=== PATIENT | female | born 1995 | race Caucasian/White ===

== ENCOUNTER 2018-11-05 10:43 | Outpatient (CLI) | payer BC, SELFPAY ==
[2018-11-05 11:08] LABS: HCT 43.7 % (36.0-46.0); HGB 14.9 g/dL (12.0-15.5); Mean Corp. HGB Concentration 34.1 g/dL (32.0-36.0); Mean Corpuscular Hemoglobin 29.1 pg (27.0-33.0); Mean Corpuscular Volume 85.4 fL (80-95); Mean Platelet Volume 11.4 fL (8.0-11.0); Platelet Count 250 x1000/uL (130-400); RBC 5.12 m/cumm (4.00-5.20); RBC Distribution Width 11.6 % (11.7-14.6); White Blood Cell Count 5.47 k/cumm (4.4-10.8)
[2018-11-05 13:11] LABS: ALT 28 U/L (12-78); AST 20 U/L (15-37); Alkaline Phosphatase 65 U/L (46-116); Amylase 60 U/L (25-115); Anion Gap 9.3 mmol/L (3-11); BUN 7 mg/dL (7-18); Bilirubin, Total 0.5 mg/dL (0.2-1.0); CO2 29.7 mmol/L (21.0-32.0); CREATININE 1.03 mg/dL (0.55-1.02); Calcium 9.4 mg/dL (8.5-10.1); Chloride 103 mmol/L (98-107); Glucose 104 mg/dL (70-100); Lipase 99 U/L (73-393); Potassium 4.3 mmol/L (3.5-5.1); Sodium 142 mmol/L (136-145); Total Protein 7.4 g/dL (6.4-8.2)
[2018-11-07 13:14] LABS: IgA 312 mg/dL (85-499); Interpretation SEE COMMENTS; Tissue Transglutaminase IgA <1.2 U/mL (<4.0)
== END 2018-11-05 11:03 ==
PROVIDERS: PCP Pediatrics; Visit Provider Registered Nurse
DX: R11.0 Nausea (principal)
CPT/HCPCS: 36415; 80053; 82784; 83516; 83690; 85027; 82150

== ENCOUNTER 2018-11-26 00:53 | Outpatient (CLI) | payer BC, SELFPAY ==
--- NOTE | 2018-11-26 06:54 | DI.US_ITS ---
SYMPTOM/DIAGNOSIS: CHRONIC ABD PAIN, NAUSEA, R11.0 ABDOMEN ULTRASOUND: Routine examination was performed. The visualized liver parenchyma is normal in appearance. There is no evidence of cholelithiasis. The common bile duct is of normal diameter. The pancreas and spleen appear intact. No renal abnormality is seen. The abdominal aorta is of normal diameter. Normal appearance of IVC. CONCLUSION: Normal abdominal ultrasound.
== END 2018-11-26 01:13 ==
PROVIDERS: PCP Pediatrics; Visit Provider Registered Nurse
DX: R10.84 Generalized abdominal pain (principal); R11.0 Nausea
CPT/HCPCS: 76700

== ENCOUNTER 2019-07-09 11:40 | Outpatient (REF) | payer BC, SELFPAY ==
--- NOTE | 2019-07-09 11:00 | PAPFT_PTH ---
PATIENT: Evette Feng LOC: [facility] U#:[id number] AGE/SX: 24/F ROOM: RE07/09/[address]: KRISTIN Coto : 1995 BED: DIS: 07/09/2019 SPEC #: [id number] RECD: 07/09/19 12:46 STATUS: GETACHEW REQ #: [id number] TOMMY: 07/09/19 11:[address]: Nohemy Copeland DEPT: [facility] Cytology RECD BY: Sabrina Hernandez ENTERED: 07/09/19 12:46 SP TYPE: PAPFT OTHR DR: Miri Jones MD Tissues: 1 - CX/ENDOCX FOR PAP SMEARS Procedures: PAP THIN PREP/[facility] Screening Comments: [id number]
[2019-07-10 15:41] LABS: Chlamydia Result Negative (Negative); GC Result Negative (Negative); Specimen Description CERVIX
== END 2019-07-09 12:00 ==
LOC: LBN 11:40
PROVIDERS: PCP Pediatrics; Visit Provider Nurse Practitioner Family
DX: Z11.3 Encounter for screening for infections with a predominantly sexual mode of transmission (principal); Z12.4 Encounter for screening for malignant neoplasm of cervix; Z11.51 Encounter for screening for human papillomavirus (HPV)
CPT/HCPCS: 87491; 87591; 88142

== ENCOUNTER 2021-01-23 16:06 | Outpatient (REF) | payer BC, SELFPAY ==
--- NOTE | 2021-01-23 14:00 | PAPFT_PTH ---
PATIENT: Evette Feng LOC: [facility] U#:[id number] AGE/SX: 25/F ROOM: RE01/23/[address]: KRISTIN Coto : 1995 BED: DIS: 01/23/2021 SPEC #: [id number] RECD: 01/23/21 18:39 STATUS: GETACHEW REQ #: [id number] TOMMY: 01/23/21 14:[address]: Nohemy Copeland DEPT: [facility] Cytology RECD BY: Sabrina Hernandez ENTERED: 01/23/21 18:39 SP TYPE: PAPFT OT DR: Rosita Alvarado APRN Tissues: 1 - CX/ENDOCX FOR PAP SMEARS Procedures: PAP THIN PREP/[facility] Screening Comments: [id number]
== END 2021-01-23 16:07 | disposition home or self-care (01) ==
LOC: LBN 16:06
PROVIDERS: PCP Nurse Practitioner Adult Health; Visit Provider Nurse Practitioner Family
DX: Z12.4 Encounter for screening for malignant neoplasm of cervix (principal)
CPT/HCPCS: 88142

== ENCOUNTER 2022-02-13 12:14 | Outpatient (REF) | payer BC, SELFPAY ==
--- NOTE | 2022-02-13 11:30 | PAPFT_PTH ---
PATIENT: Evette Feng LOC: [facility] U#:[id number] AGE/SX: 27/F ROOM: RE02/13/[address]: KRISTIN Coto : 1995 BED: DIS: 02/13/2022 SPEC #: [id number] RECD: 02/13/22 12:59 STATUS: GETACHEW REQ #: [id number] TOMMY: 02/13/22 11:[address]: Nohemy Copeland DEPT: [facility] Cytology RECD BY: Sabrina Hernandez ENTERED: 02/13/22 12:59 SP TYPE: PAPFT OTHR DR: Rosita Alvarado APRN Tissues: 1 - CX/ENDOCX FOR PAP SMEARS Procedures: PAP THIN PREP/[facility] Screening Comments: [id number]
== END 2022-02-13 12:15 | disposition home or self-care (01) ==
LOC: LBN 12:14
PROVIDERS: PCP Nurse Practitioner Adult Health; Visit Provider Nurse Practitioner Family
DX: Z12.4 Encounter for screening for malignant neoplasm of cervix (principal)
CPT/HCPCS: 88142

== ENCOUNTER 2022-02-27 01:23 | Outpatient (CLI) | payer BC, SELFPAY ==
[2022-02-27 11:16] LABS: FREE T4 0.83 ng/dL (0.76-1.46); TSH 2.55 uIU/mL (0.36-3.74)
== END 2022-02-27 01:24 | disposition home or self-care (01) ==
LOC: LBO 01:23
PROVIDERS: PCP Nurse Practitioner Adult Health; Visit Provider Nurse Practitioner Family
DX: E03.9 Hypothyroidism, unspecified (principal)
CPT/HCPCS: 36415; 84439; 84443

== ENCOUNTER 2022-03-08 03:57 | Outpatient (CLI) | payer BC, SELFPAY ==
[2022-03-12 09:34] LABS: Testosterone, Free 1.34 ng/dL (0.06-1.06); Testosterone, Total 56 ng/dL (8-60)
== END 2022-03-08 03:58 | disposition home or self-care (01) ==
LOC: LBO 03:57
PROVIDERS: PCP Nurse Practitioner Adult Health; Visit Provider Obstetrics & Gynecology
DX: N91.3 Primary oligomenorrhea (principal)
CPT/HCPCS: 36415; 84402; 84403

== ENCOUNTER 2022-08-20 03:12 | Outpatient (CLI) | payer BC, SELFPAY ==
[2022-08-20 14:56] LABS: Panorama Kit Sent via Fed Ex
[2022-08-20 15:00] LABS: Abs Immature Grans 0.03 10^3/uL (0.0-0.06); Absolute Basophil Count 0.04 10^3/uL (0.0-0.2); Absolute Eosinophil Count 0.08 10^3/uL (0.0-0.7); Absolute Lymphocyte Count 2.62 10^3/uL (1.2-3.4); Absolute Monocyte Count 0.65 10^3/uL (0.1-0.8); Absolute Neutrophil Count 8.37 10^3/uL (1.2-6.7); Basophils % 0.3; Eosinophils % 0.7; HGB 13.7 g/dL (11.2-15.7); Immature Grans % 0.3; Lymphocytes % 22.2; MCH 29.1 pg (27.0-33.0); MCHC 34.3 % (32.0-36.0); MCV 85 fL (80-95); MPV 10.7 fL (8.0-11.0); Monocytes % 5.5; Platelet Count 324 10^3/uL (130-400); RDW 11.9 % (11.7-14.6); RDW-SD 36.8 fL; WBC 11.79 10^3/uL (4.4-10.8)
[2022-08-21 08:51] LABS: Hepatitis B Surface Ag Negative (Negative)
[2022-08-21 09:13] LABS: Hepatitis C Ab w Rflx HCV PCR Negative (Negative)
[2022-08-21 10:03] LABS: HIV-1/2 Ag & Ab Screen Negative (Negative)
[2022-08-21 11:12] LABS: Varicella IgG Antibody Negative (See Note)
[2022-08-21 11:17] LABS: Rubella IgG Ab (UVM) Negative (See Note)
[2022-08-22 15:24] LABS: Syphilis IgG w/Reflex Nonreactive (Nonreactive)
[2022-09-26 17:23] LABS: Result Summary NEGATIVE; Specimen WB Whole Blood
== END 2022-08-20 03:13 | disposition home or self-care (01) ==
LOC: LBO 03:12
PROVIDERS: Advanced Practice Midwife; PCP Nurse Practitioner Adult Health; Visit Provider Advanced Practice Midwife
DX: Z34.91 Encounter for supervision of normal pregnancy, unspecified, first trimester (principal); Z36.89 Encounter for other specified antenatal screening; Z3A.11 11 weeks gestation of pregnancy
CPT/HCPCS: 36415; 81220; 81222; 86787; 86803; 86850; 86900; 86901; 87340; 87389; 85025; 86762; 86780

== ENCOUNTER 2022-08-20 16:07 | Outpatient (REF) | payer BC, SELFPAY ==
[2022-08-20 17:04] LABS: *AMPHETAMINES SCREEN URINE Negative (Negative); *BARBITURATES SCREEN URINE Negative (Negative); *BENZODIAZEPINES SCREEN URINE Negative (Negative); Cannabinoids THC Negative (Negative); Cocaine Screen,Urine Negative (Negative); METHADONE URINE SCREEN Negative (Negative); OPIATES URINE SCREEN Negative (Negative)
[2022-08-20 17:05] LABS: Tricyclic Antidepressants Negative (Negative)
[2022-08-22 15:00] LABS: Chlamydia Result Negative (Negative); GC Result Negative (Negative)
[2022-08-24 12:41] LABS: Buprenorphine Negative ng/mL (Cutoff: 5.0); Norbuprenorphine Negative ng/mL (Cutoff: 2.5)
== END 2022-08-20 16:08 | disposition home or self-care (01) ==
LOC: LBN 16:07
PROVIDERS: PCP Nurse Practitioner Adult Health; Visit Provider Advanced Practice Midwife
DX: Z34.91 Encounter for supervision of normal pregnancy, unspecified, first trimester (principal)
CPT/HCPCS: 80307; 80348; 87491; 87591; 87086; 87480; 87510; 87660

== ENCOUNTER 2022-09-18 03:29 | Outpatient (CLI) | payer BC, SELFPAY ==
[2022-09-19 16:26] LABS: Calculated age at EDD 26 years; Cigarette smoking status non-Smoker; GA used in risk estimate Scan estimate; IVF Pregnancy No; Initial or repeat testing Initial testing; Insulin dependent diabetes No; Maternal Weight 152 lbs; Number of Fetuses 1; Physician Phone Number 802-748-7300; Prev Pregnancy w/NTD No; RECOMMENDED FOLLOW UP None.; Results Summary Normal risk
== END 2022-09-18 03:30 | disposition home or self-care (01) ==
LOC: LBO 03:30
PROVIDERS: Advanced Practice Midwife; PCP Nurse Practitioner Adult Health; Visit Provider Advanced Practice Midwife
DX: Z34.92 Encounter for supervision of normal pregnancy, unspecified, second trimester (principal)
CPT/HCPCS: 36415; 82105